=== PATIENT | male | born 1980 | race Two or more races ===

== ENCOUNTER 2019-05-05 21:10 | Emergency (ER) | payer OTHER ==
[~2019-05-05] VITALS: Ht 180.3 cm; Wt 90.7 kg
[2019-05-05] MEDS ORDERED: TUSNEL LIQUID178 ML PO (23:09)
[2019-05-05] MEDS ORDERED: DOLOGEN CAPLET1 EACH PO (23:09)
[2019-05-05] MEDS ORDERED: OSEL75CA PO (23:09)
== END 2019-05-05 23:14 | disposition home or self-care (01) ==
LOC: ER 21:10 → EDBD 21:47 → ER 21:47
DX: J11.1 Influenza due to unidentified influenza virus with other respiratory manifestations (principal); R50.9 Fever, unspecified

== ENCOUNTER 2022-09-01 08:02 | Outpatient (CLI) | payer OTHER ==
[~2022-09-01 08:02] MED LIST: DOLOGEN CAPLET1 EACH PO; OSEL75CA PO; TUSNEL LIQUID178 ML PO
== END 2022-09-01 08:15 | disposition home or self-care (01) ==
LOC: TOM 08:02
PROVIDERS: ATTEND Internal Medicine
DX: K57.90 Diverticulosis of intestine, part unspecified, without perforation or abscess without bleeding (principal); K42.9 Umbilical hernia without obstruction or gangrene

== ENCOUNTER 2022-09-28 08:03 | Outpatient (CLI) | payer OTHER | END 2022-09-28 08:13 | disposition home or self-care (01) | LOC: TOM 08:03 | DX: Z12.11 Encounter for screening for malignant neoplasm of colon (principal); Z80.0 Family history of malignant neoplasm of digestive organs ==

== ENCOUNTER 2024-05-08 09:00 | Outpatient (CLI) | payer OTHER | END 2024-05-08 09:11 | disposition home or self-care (01) | LOC: SONOGRAMA 09:00 | PROVIDERS: ATTEND Internal Medicine | DX: K76.0 Fatty (change of) liver, not elsewhere classified (principal) ==

== ENCOUNTER 2024-06-15 07:29 | Outpatient (CLI) | payer OTHER | END 2024-06-15 07:40 | disposition home or self-care (01) | LOC: RAD 07:29 | PROVIDERS: ATTEND Urology | DX: N20.0 Calculus of kidney (principal); R10.9 Unspecified abdominal pain; I86.1 Scrotal varices; Q61.00 Congenital renal cyst, unspecified; N40.0 Benign prostatic hyperplasia without lower urinary tract symptoms; N50.819 Testicular pain, unspecified; Z80.42 Family history of malignant neoplasm of prostate ==